=== PATIENT | female | born 1960 | race American Indian/Alaskan Native ===

== ENCOUNTER 2017-06-17 00:45 | Inpatient (IN) | payer OTHER ==
[2017-06-17] MEDS ORDERED: ASPIRIN PO ONE (01:11)
[2017-06-17] MEDS ORDERED: CATAPRES ONE (01:17)
[2017-06-17] MEDS ORDERED: CATAPRES PO ONE (01:20)
[2017-06-17 02:10] LABS: Hematocrit 41.3 % (30.3-42.9); Hemoglobin 13.5 gm/dl (10.1-14.3); Mean Corpuscular HGB Conc 33 % (30-34); Mean Corpuscular Hemoglobin 27 pg (28-32); Mean Corpuscular Volume 83 fl (79-97); Platelet Count 288 K/mm3 (140-440); Red Cell Distribution Width 15.4 % (13.2-15.2)
[2017-06-17 02:27] LABS: BUN/Creatinine Ratio 16; Blood Urea Nitrogen 14 mg/dL (7-17); Calcium 9.2 mg/dL (8.4-10.2); Hemolysis Index 15
[2017-06-17 06:15] LABS: Anisocytosis 1+; Band Neutrophils # (Manual) 0.2 K/mm3; Basophils % (Manual) 0 % (0.0-1.8); Hypochromasia 1+; Total Cells Counted 100
[2017-06-17 06:16] LABS: Ovalocytes Few
[2017-06-17] MEDS ORDERED: HCTZ PO ONE (09:13)
[2017-06-17] MEDS ORDERED: ZESTRIL PO ONE (09:13)
[2017-06-17] MEDS ORDERED: NITROSTAT SL ONE ×2 (10:06→10:09)
[2017-06-17] MEDS ORDERED: TYLENOL PO ONE (10:06)
--- NOTE | 2017-06-17 10:10 | Emergency Department Report ---
ED Chest Pain HPI - General Chief Complaint: Chest Pain Stated Complaint: CP Time Seen by Provider: 06/17/17 09:44 Source: patient Mode of arrival: Ambulatory Limitations: No Limitations - History of Present Illness Initial Comments: Patient is 57 years old female history of hypertension and obesity. Presented with left-sided chest pain started last night radiates to her left arm, patient prescribed her pain as pressure, intermittent. Patient denied any shortness of breath, no nausea no vomiting. MD Complaint: chest pain -: Last night Pain Location: left chest Pain Radiation: LUE Severity scale (0 -10): 5 Quality: pressure Consistency: intermittent Improves With: nothing Worsens With: exertion Treatments Prior to Arrival: none - Related Data Home Medications Medication Instructions Recorded Confirmed Last Taken Lisinopril/Hydrochlorothiazide 1 tab PO QDAY 06/17/17 06/17/17 Unknown [Zestoretic 20-25 mg] Allergies Allergy/AdvReac Type Severity Reaction Status Date / Time No Known Allergies Allergy Verified 06/17/17 01:31 Heart Score - HEART Score History: Moderately suspicious EKG: Non-specific Age: 45-65 Risk factors: 1-2 risk factors Troponin: < normal limit HEART Score: 4 - Critical Actions Critical Actions: 4-6 pts:12-16.6% risk of adverse cardiac event. Should be admitted ED Review of Systems ROS: Stated complaint: CP Other details as noted in HPI Comment: All other systems reviewed and negative Constitutional: denies: chills, fever Respiratory: denies: cough, orthopnea, shortness of breath, SOB with exertion Cardiovascular: chest pain. denies: palpitations, dyspnea on exertion Gastrointestinal: denies: abdominal pain, nausea, vomiting, diarrhea, constipation, hematemesis Genitourinary: denies: urgency, frequency Neurological: denies: headache, weakness, numbness, paresthesias ED Past Medical Hx - Past Medical History Hx Hypertension: Yes - Surgical History Additional Surgical History: Carpal Tunnel Bilateral hands, Hysterectomy - Social History Smoking Status: Never Smoker Substance Use Type: None - Medications Home Medications: Home Medications Medication Instructions Recorded Confirmed Last Taken Type Lisinopril/Hydrochlorothiazide 1 tab PO QDAY 06/17/17 06/17/17 Unknown History [Zestoretic 20-25 mg] ED Physical Exam - General Limitations: No Limitations General appearance: alert, in no apparent distress - Head Head exam: Present: atraumatic, normocephalic - Eye Eye exam: Present: normal appearance, PERRL - ENT ENT exam: Present: normal exam, normal orophraynx - Respiratory Respiratory exam: Present: normal lung sounds bilaterally. Absent: respiratory distress, wheezes, rales, rhonchi, chest wall tenderness, decreased breath sounds, prolonged expiratory - Cardiovascular Cardiovascular Exam: Present: regular rate, normal rhythm, normal heart sounds - GI/Abdominal GI/Abdominal exam: Present: soft, normal bowel sounds. Absent: distended, tenderness, guarding, rebound, rigid, organomegaly, mass, bruit, pulsatile mass , hernia - Extremities Exam Extremities exam: Present: normal inspection, full ROM, normal capillary refill - Back Exam Back exam: Present: normal inspection, full ROM. Absent: tenderness, CVA tenderness (R), CVA tenderness (L), muscle spasm, paraspinal tenderness, vertebral tenderness - Neurological Exam Neurological exam: Present: alert, oriented X3, CN II-XII intact, normal gait - Skin Skin exam: Present: warm, intact, normal color. Absent: cyanosis, diaphoretic, erythema ED Course Vital Signs 06/17/17 06/17/17 06/17/17 00:59 01:21 08:37 Temperature 98.8 F Pulse Rate 98 H 101 H 60 Respiratory 20 18 Rate Blood Pressure 222/122 222/122 Blood Pressure [Left] O2 Sat by Pulse 97 99 Oximetry 06/17/17 06/17/17 06/17/17 08:44 08:46 08:47 Temperature 97.8 F Pulse Rate 73 67 Respiratory 18 14 18 Rate Blood Pressure 190/102 Blood Pressure 190/102 [Left] O2 Sat by Pulse 98 96 98 Oximetry 06/17/17 06/17/17 06/17/17 09:00 09:10 09:18 Temperature Pulse Rate 65 73 73 Respiratory 14 18 Rate Blood Pressure 161/95 161/95 Blood Pressure 161/95 [Left] O2 Sat by Pulse 97 97 Oximetry 06/17/17 10:11 Temperature Pulse Rate 72 Respiratory Rate Blood Pressure 178/101 Blood Pressure [Left] O2 Sat by Pulse Oximetry ED Medical Decision Making - Lab Data Result diagrams: 06/17/17 01:23 06/17/17 01:23 - EKG Data -: EKG Interpreted by De EKG shows normal: sinus rhythm Rate: normal - EKG Data Interpretation: no acute changes - Medical Decision Making Discussed with Dr. Ross., I presented the patient to him, he agreed to admit the patient to his service. Critical care attestation.: If time is entered above; I have spent that time in minutes in the direct care of this critically ill patient, excluding procedure time. ED Disposition Clinical Impression: Chest pain, Malignant hypertension Disposition: OP ADMIT IP TO THIS HOSP Is pt being admited?: Yes Condition: Stable Instructions: Chest Pain (ED), Hypertension (ED) Referrals: PRIMARY CARE, [Primary Care Provider] - 3-5 Days
--- NOTE | 2017-06-17 10:46 | XRay Report ---
Single view chest: History: Chest pain. Findings: Borderline cardiomegaly. Trachea is midline. No consolidation, pneumothorax or pleural effusion. Impression: No definite acute cardiopulmonary findings.
--- NOTE | 2017-06-17 11:18 | History and Physical Report ---
History of Present Illness Date of examination: 06/17/17 Date of admission: 06/17/17 Chief complaint: Chest pain 1 day History of present illness: - History of Present Illness Initial Comments: Patient is 57 years old AAF with history of hypertension and obesity presented with left-sided chest pain started last night radiates to her left arm , patient her pain as pressure, intermittent. Patient denied any shortness of breath, no nausea no vomiting. ED Review of Systems ROS: Stated complaint: CP Other details as noted in HPI Comment: All other systems reviewed and negative Constitutional: denies: chills, fever Respiratory: denies: cough, orthopnea, shortness of breath, SOB with exertion Cardiovascular: chest pain. denies: palpitations, dyspnea on exertion Gastrointestinal: denies: abdominal pain, nausea, vomiting, diarrhea, constipation, hematemesis Genitourinary: denies: urgency, frequency Neurological: denies: headache, weakness, numbness, paresthesias ED Past Medical Hx - Past Medical History Hx Hypertension: Yes - Surgical History Additional Surgical History: Carpal Tunnel Bilateral hands, Hysterectomy - Social History Smoking Status: Never Smoker Substance Use Type: None - Medications Home Medications: Home Medications Medication Instructions Recorded Confirmed Last Taken Type Lisinopril/Hydrochlorothiazide 1 tab PO QDAY 06/17/17 06/17/17 Unknown History [Zestoretic 20-25 mg] Past History Past Medical History: hypertension Medications and Allergies Allergies Allergy/AdvReac Type Severity Reaction Status Date / Time No Known Allergies Allergy Verified 06/17/17 01:31 Home Medications Medication Instructions Recorded Confirmed Last Taken Type Lisinopril/Hydrochlorothiazide 1 tab PO QDAY 06/17/17 06/17/17 Unknown History [Zestoretic 20-25 mg] Exam - Constitutional Vitals: Temp Pulse Resp BP Pulse Ox 97.8 F 64 13 148/93 97 06/17/17 08:44 06/17/17 11:00 06/17/17 11:00 06/17/17 11:00 06/17/17 11:00 General appearance: Present: no acute distress, well-nourished - EENT Eyes: Present: PERRL ENT: hearing intact, clear oral mucosa - Neck Neck: Present: supple, normal ROM - Respiratory Respiratory effort: normal Respiratory: bilateral: CTA - Cardiovascular Heart rate: 80 Rhythm: regular Heart Sounds: Present: S1 & S2. Absent: rub, click - Extremities Extremities: no ischemia, pulses intact, pulses symmetrical, No edema Peripheral Pulses: within normal limits - Abdominal General gastrointestinal: Present: soft, non-tender, non-distended, normal bowel sounds Female genitourinary: Present: normal - Rectal Rectal Exam: deferred - Integumentary Integumentary: Present: clear, warm, dry - Musculoskeletal Musculoskeletal: gait normal, strength equal bilaterally - Psychiatric Psychiatric: appropriate mood/affect, intact judgment & insight - Neurologic Neurologic: CNII-XII intact, moves all extremities - Allied Health Allied health notes reviewed: nursing, case management Results - Labs CBC & Chem 7: 06/18/17 06:14 06/18/17 06:14 Labs: Laboratory Last Values WBC 10.6 K/mm3 (4.5-11.0) 06/17/17 01:23 RBC 5.00 M/mm3 (3.65-5.03) 06/17/17 01:23 Hgb 13.5 gm/dl (10.1-14.3) 06/17/17 01:23 Hct 41.3 % (30.3-42.9) 06/17/17 01:23 MCV 83 fl (79-97) 06/17/17 01:23 MCH 27 pg (28-32) L 06/17/17 01:23 MCHC 33 % (30-34) 06/17/17 01:23 RDW 15.4 % (13.2-15.2) H 06/17/17 01:23 Plt Count 288 K/mm3 (140-440) 06/17/17 01:23 Lymph # [employer] 06/17/17 01:23 Add Manual Diff Complete 06/17/17 01:23 Total Counted 100 06/17/17 01:23 Seg Neuts % (Manual) 56.0 % (40.0-70.0) 06/17/17 01:23 Band Neutrophils % 2.0 % 06/17/17 01:23 Lymphocytes % (Manual) 28.0 % (13.4-35.0) 06/17/17 01:23 Reactive Lymphs % (Man) 0 % 06/17/17 01:23 Monocytes % (Manual) 9.0 % (0.0-7.3) H 06/17/17 01:23 Eosinophils % (Manual) 5.0 % (0.0-4.3) H 06/17/17 01:23 Basophils % (Manual) 0 % (0.0-1.8) 06/17/17 01:23 Metamyelocytes % 0 % 06/17/17 01:23 Myelocytes % 0 % 06/17/17 01:23 Promyelocytes % 0 % 06/17/17 01:23 Blast Cells % 0 % 06/17/17 01:23 Nucleated RBC % Not Reportable 06/17/17 01:23 Seg Neutrophils # Man 5.9 K/mm3 (1.8-7.7) 06/17/17 01:23 Band Neutrophils # 0.2 K/mm3 06/17/17 01:23 Lymphocytes # (Manual) 3.0 K/mm3 (1.2-5.4) 06/17/17 01:23 Abs React Lymphs (Man) 0.0 K/mm3 06/17/17 01:23 Monocytes # (Manual) 1.0 K/mm3 (0.0-0.8) H 06/17/17 01:23 Eosinophils # (Manual) 0.5 K/mm3 (0.0-0.4) H 06/17/17 01:23 Basophils # (Manual) 0.0 K/mm3 (0.0-0.1) 06/17/17 01:23 Metamyelocytes # 0.0 K/mm3 06/17/17 01:23 Myelocytes # 0.0 K/mm3 06/17/17 01:23 Promyelocytes # 0.0 K/mm3 06/17/17 01:23 Blast Cells # 0.0 K/mm3 06/17/17 01:23 WBC Morphology Not Reportable 06/17/17 01:23 Hypersegmented Neuts Not Reportable 06/17/17 01:23 Hyposegmented Neuts Not Reportable 06/17/17 01:23 Hypogranular Neuts Not Reportable 06/17/17 01:23 Smudge Cells Not Reportable 06/17/17 01:23 Toxic Granulation Not Reportable 06/17/17 01:23 Toxic Vacuolation Not Reportable 06/17/17 01:23 Dohle Bodies Not Reportable 06/17/17 01:23 Pelger-Huet Anomaly Not Reportable 06/17/17 01:23 Karen Rods Not Reportable 06/17/17 01:23 Platelet Estimate Appears normal 06/17/17 01:23 Clumped Platelets Not Reportable 06/17/17 01:23 Plt Clumps, EDTA Not Reportable 06/17/17 01:23 Large Platelets Not Reportable 06/17/17 01:23 Giant Platelets Not Reportable 06/17/17 01:23 Platelet Satelliting Not Reportable 06/17/17 01:23 Plt Morphology Comment Not Reportable 06/17/17 01:23 RBC Morphology Not Reportable 06/17/17 01:23 Dimorphic RBCs Not Reportable 06/17/17 01:23 Polychromasia Not Reportable 06/17/17 01:23 Hypochromasia 1+ 06/17/17 01:23 Poikilocytosis Not Reportable 06/17/17 01:23 Anisocytosis 1+ 06/17/17 01:23 Microcytosis Not Reportable 06/17/17 01:23 Macrocytosis Not Reportable 06/17/17 01:23 Spherocytes Not Reportable 06/17/17 01:23 Pappenheimer Bodies Not Reportable 06/17/17 01:23 Sickle Cells Not Reportable 06/17/17 01:23 Target Cells Not Reportable 06/17/17 01:23 Tear Drop Cells Not Reportable 06/17/17 01:23 Ovalocytes Few 06/17/17 01:23 Helmet Cells Not Reportable 06/17/17 01:23 [place] Bodies Not Reportable 06/17/17 01:23 [place] Rings Not Reportable 06/17/17 01:23 Kerrie Cells Not Reportable 06/17/17 01:23 Bite Cells Not Reportable 06/17/17 01:23 Crenated Cell Not Reportable 06/17/17 01:23 Elliptocytes Not Reportable 06/17/17 01:23 Acanthocytes (Spur) Not Reportable 06/17/17 01:23 Rouleaux Not Reportable 06/17/17 01:23 Hemoglobin C Crystals Not Reportable 06/17/17 01:23 Schistocytes Not Reportable 06/17/17 01:23 Malaria parasites Not Reportable 06/17/17 01:23 Nikolas Bodies Not Reportable 06/17/17 01:23 Hem Pathologist Commnt No 06/17/17 01:23 Sodium 141 mmol/L (137-145) 06/17/17 01:23 Potassium 4.1 mmol/L (3.6-5.0) 06/17/17 01:23 Chloride 100.3 mmol/L (98-107) 06/17/17 01:23 Carbon Dioxide 27 mmol/L (22-30) 06/17/17 01:23 Anion Gap 18 mmol/L 06/17/17 01:23 BUN 14 mg/dL (7-17) 06/17/17 01:23 Creatinine 0.9 mg/dL (0.7-1.2) 06/17/17 01:23 Estimated GFR > 60 ml/min 06/17/17 01:23 BUN/Creatinine Ratio 16 % 06/17/17 01:23 Glucose 86 mg/dL (65-100) 06/17/17 01:23 Calcium 9.2 mg/dL (8.4-10.2) 06/17/17 01:23 Troponin T < 0.010 ng/mL (0.00-0.029) 06/17/17 07:30 Short CBC 06/18/17 Range/Units 06:14 WBC 7.5 (4.5-11.0) K/mm3 Hgb 13.0 (10.1-14.3) gm/dl Hct 39.1 (30.3-42.9) % Plt Count 275 (140-440) K/mm3 BMP 06/18/17 06:14 Sodium 139 Potassium 4.5 Chloride 99.1 Carbon Dioxide 27 BUN 12 Creatinine 0.8 Glucose 91 Calcium 9.3 Cardiac Enzymes 06/17/17 Range/Units 17:20 Troponin T < 0.010 (0.00-0.029) ng/mL Liver Function 06/18/17 Range/Units 06:14 Total Bilirubin 0.50 (0.1-1.2) mg/dL AST 29 (5-40) units/L ALT 29 (7-56) units/L Alkaline Phosphatase 71 (35-129) units/L Albumin 3.8 L (3.9-5) g/dL - Imaging and Cardiology EKG: report reviewed (sinus tach 112/min) Assessment and Plan Advance Directives: Yes (full code) VTE prophylaxis?: Chemical Plan of care discussed with patient/family: Yes - Patient Problems (1) Chest pain Current Visit: Yes Status: Acute Qualifiers: Chest pain type: chest pain on breathing Qualified Code(s): R07.1 - Chest pain on breathing; R07.81 - Pleurodynia Plan to address problem: Chest pain w/u. Serial cardiac enzymes and Lexiscan in AM Diff Dx Costochondritis and GERD (2) HTN (hypertension) Current Visit: Yes Status: Chronic Qualifiers: Hypertension type: essential hypertension Qualified Code(s): I10 - Essential (primary) hypertension Plan to address problem: Cont Antihypertensives (3) DVT prophylaxis Current Visit: Yes Status: Acute Plan to address problem: Lovenox
[2017-06-17] MEDS ORDERED: DULCOLAX PR PRN (11:24)
[2017-06-17] MEDS ORDERED: MILK OF MAGNESIA PO PRN (11:24)
[2017-06-17] MEDS ORDERED: TYLENOL PO PRN (11:24)
[2017-06-17] MEDS ORDERED: ZOFRAN IV PRN (11:24)
[2017-06-17] MEDS ORDERED: PERCOCET 5/325 PO PRN (11:24)
[2017-06-17] MEDS ORDERED: SODIUM CHLORIDE FLUSH SYRINGE 10 ML IV PRN (11:28)
[2017-06-17] MEDS ORDERED: NON-FORMULARY (Lisinopril/Hydrochlorothiazide [Zestoretic 20-25 Mg] 1 TAB) PO SCH (11:30)
[2017-06-17 12:03] LABS: Basophils # (Auto) 0.1 K/mm3 (0.0-0.1); Basophils % (Auto) 0.5 % (0.0-1.8); Eosinophils # (Auto) 0.4 K/mm3 (0.0-0.4); Eosinophils % (Auto) 3.7 % (0.0-4.3); Hematocrit 38.6 % (30.3-42.9); Hemoglobin 12.3 gm/dl (10.1-14.3); Lymphocytes # (Auto) 4.3 K/mm3 (1.2-5.4); Lymphocytes % (Auto) 43.6 % (13.4-35.0); Mean Corpuscular HGB Conc 32 % (30-34); Mean Corpuscular Hemoglobin 26 pg (28-32); Mean Corpuscular Volume 82 fl (79-97); Monocytes # (Auto) 0.6 K/mm3 (0.0-0.8); Monocytes % (Auto) 6.5 % (0.0-7.3); Platelet Count 296 K/mm3 (140-440); Red Blood Count 4.69 M/mm3 (3.65-5.03)
[2017-06-17 12:21] LABS: BUN/Creatinine Ratio 16; Blood Urea Nitrogen 13 mg/dL (7-17); Calcium 9.3 mg/dL (8.4-10.2); Hemolysis Index 2
[2017-06-17] MEDS: LOVENOX SUB-Q SCH (22:55)
[2017-06-18 07:35] LABS: Basophils % (Auto) 0.5 % (0.0-1.8); Eosinophils # (Auto) 0.5 K/mm3 (0.0-0.4); Eosinophils % (Auto) 6.5 % (0.0-4.3); Hematocrit 39.1 % (30.3-42.9); Lymphocytes # (Auto) 3.3 K/mm3 (1.2-5.4); Lymphocytes % (Auto) 44.6 % (13.4-35.0); Mean Corpuscular HGB Conc 33 % (30-34); Mean Corpuscular Hemoglobin 28 pg (28-32); Mean Corpuscular Volume 83 fl (79-97); Monocytes # (Auto) 0.5 K/mm3 (0.0-0.8); Platelet Count 275 K/mm3 (140-440); Red Blood Count 4.73 M/mm3 (3.65-5.03); Red Cell Distribution Width 15.7 % (13.2-15.2)
[2017-06-18 07:49] LABS: Alanine Aminotransferase 29 units/L (7-56); Albumin 3.8 g/dL (3.9-5); BUN/Creatinine Ratio 15; Blood Urea Nitrogen 12 mg/dL (7-17); Calcium 9.3 mg/dL (8.4-10.2); Hemolysis Index 7
[2017-06-18] MEDS ORDERED: LEXISCAN IV ONE ×2 (09:43)
[2017-06-18] MEDS ORDERED: CATAPRES PO NR (09:51)
[2017-06-18] MEDS ORDERED: CATAPRES ONE (09:52)
[2017-06-18] MEDS ORDERED: PNEUMOVAX 23 IM ONE (12:00)
[2017-06-18] MEDS: HCTZ PO SCH (14:00)
[2017-06-18] MEDS: ZESTRIL PO SCH ×2 (14:14→14:21)
[2017-06-18] MEDS ORDERED: SODIUM CHLORIDE FLUSH SYRINGE 10 ML IV PRN (15:40)
--- NOTE | 2017-06-18 15:46 | Progress Note ---
Assessment and Plan - Patient Problems (1) Chest pain Current Visit: Yes Status: Acute Qualifiers: Chest pain type: chest pain on breathing Qualified Code(s): R07.1 - Chest pain on breathing; R07.81 - Pleurodynia Plan to address problem: Chest pain w/u. Serial cardiac enzymes and Lexiscan in AM Diff Dx Costochondritis and GERD (2) HTN (hypertension) Current Visit: Yes Status: Chronic Qualifiers: Hypertension type: essential hypertension Qualified Code(s): I10 - Essential (primary) hypertension Plan to address problem: Cont Antihypertensives (3) DVT prophylaxis Current Visit: Yes Status: Acute Plan to address problem: Lovenox Subjective Date of service: 06/18/17 Principal diagnosis: ACS Interval history: Doing well Objective - Constitutional Vitals: Vital Signs - 12hr 06/18/17 06/18/17 06/18/17 04:55 05:00 05:01 Temperature 98.4 F 98.4 F Pulse Rate 65 78 77 Respiratory 20 20 Rate Blood Pressure 144/86 126/69 O2 Sat by Pulse 92 95 Oximetry 06/18/17 06/18/17 06/18/17 08:12 09:25 09:46 Temperature 98.5 F Pulse Rate 66 71 90 Respiratory 18 Rate Blood Pressure 172/91 198/98 182/100 O2 Sat by Pulse 91 Oximetry 06/18/17 06/18/17 06/18/17 09:47 09:48 09:49 Temperature Pulse Rate 87 87 83 Respiratory Rate Blood Pressure 199/101 209/97 200/90 O2 Sat by Pulse Oximetry 06/18/17 06/18/17 06/18/17 09:50 09:51 09:52 Temperature Pulse Rate 85 81 79 Respiratory Rate Blood Pressure 176/95 191/99 192/92 O2 Sat by Pulse Oximetry 06/18/17 06/18/17 06/18/17 09:53 09:54 10:01 Temperature Pulse Rate 79 79 119 H Respiratory Rate Blood Pressure 196/97 175/95 188/95 O2 Sat by Pulse Oximetry General appearance: Present: no acute distress, well-nourished - EENT Eyes: PERRL, EOM intact ENT: hearing intact, clear oral mucosa Ears: bilateral: normal - Neck Neck: supple, normal ROM - Respiratory Respiratory effort: normal Respiratory: bilateral: CTA, rhonchi - Breasts Breasts: normal - Cardiovascular Rhythm: regular Heart Sounds: Present: S1 & S2. Absent: gallop, rub Extremities: no ischemia, pulses intact, No edema, normal color, Full ROM - Gastrointestinal General gastrointestinal: Present: soft, non-tender, non-distended, normal bowel sounds Rectal Exam: deferred - Genitourinary Female genitourinary: normal - Integumentary Integumentary: clear, warm, dry - Musculoskeletal Musculoskeletal: 1, strength equal bilaterally - Neurologic Neurologic: moves all extremities - Psychiatric Psychiatric: memory intact, appropriate mood/affect, intact judgment & insight - Allied health notes Allied health notes reviewed: nursing, case management - Labs CBC & Chem 7: 06/18/17 06:14 06/18/17 06:14 Labs: Abnormal lab results 06/18/17 06/18/17 Range/Units 06:14 06:14 RDW 15.7 H (13.2-15.2) % Lymph % (Auto) 44.6 H (13.4-35.0) % Eos % (Auto) 6.5 H (0.0-4.3) % Eos # 0.5 H (0.0-0.4) K/mm3 Albumin 3.8 L (3.9-5) g/dL
[2017-06-18 16:06] LABS: Hematocrit 43.2 % (30.3-42.9); Hemoglobin 13.6 gm/dl (10.1-14.3); Mean Corpuscular HGB Conc 31 % (30-34); Mean Corpuscular Hemoglobin 26 pg (28-32); Mean Corpuscular Volume 83 fl (79-97); Platelet Count 299 K/mm3 (140-440); Red Blood Count 5.21 M/mm3 (3.65-5.03); Red Cell Distribution Width 15.8 % (13.2-15.2)
[2017-06-18 16:44] LABS: BUN/Creatinine Ratio 16; Blood Urea Nitrogen 13 mg/dL (7-17); Calcium 9.6 mg/dL (8.4-10.2); Hemolysis Index 69
[2017-06-18 17:29] LABS: Band Neutrophils # (Manual) 0.1 K/mm3; Basophils % (Manual) 0 % (0.0-1.8); RBC Morphology Normal; Total Cells Counted 100
[2017-06-18] MEDS: LOVENOX SUB-Q SCH (22:20)
[2017-06-19] MEDS: HCTZ PO SCH ×2 (07:18→09:41)
[2017-06-19] MEDS: ZESTRIL PO SCH ×2 (07:19→09:41)
--- NOTE | 2017-06-19 07:26 | Treadmill Report ---
THALLIUM STRESS TEST REPORT LEFT VENTRICLE: Left ventricular chamber size is within normal spread. Perfusion study demonstrates homogeneous uptake of the tracer in all segments, no significant perfusion defects identified. Gated analysis demonstrates normal left ventricular systolic function, ejection fraction 64%. CONCLUSION: Normal myocardial perfusion study. JOB# [id number] CA/NTS
--- NOTE | 2017-06-19 15:37 | Discharge Summary ---
Providers - Providers Date of Admission: 06/17/17 11:24 Date of discharge: 06/19/17 Attending physician: POONAM MCKINNON 06/18/17 Consult to Cardiac Rehabilitation [CONS] Routine Reason For Exam: Phase I Primary care physician: SAIMA GUZMÁN Hospitalization Reason for admission: cp Condition: Stable Hospital course: Patient is 57 years old AAF with history of hypertension and obesity presented with left-sided chest pain started the night before admission and reportedly radiated to her left arm. Her pain was described as a pressure that was intermittent. Patient denied any shortness of breath, no nausea no vomiting. Patient currently denies any chest pain today. Patient underwent a stress thallium, which was found to be negative. Chest x-ray was also found to be negative. Troponins were negative 3 sets. Etiology of chest pain is likely GERD. Dedicated discharge time 33 minutes. Disposition: TO HOME OR SELFCARE Time spent for discharge: 33 - Discharge Diagnoses (1) Chest pain Status: Acute Qualifiers: Chest pain type: chest pain on breathing Qualified Code(s): R07.1 - Chest pain on breathing; R07.81 - Pleurodynia (2) HTN (hypertension) Status: Chronic Qualifiers: Hypertension type: essential hypertension Qualified Code(s): I10 - Essential (primary) hypertension Core Measure Documentation - Palliative Care Palliative Care/ Comfort Measures: Not Applicable - Core Measures Any of the following diagnoses?: none Exam - Constitutional Vitals: Temp Pulse Resp BP Pulse Ox 98.9 F 79 18 156/83 94 06/19/17 12:30 06/19/17 12:30 06/19/17 12:30 06/19/17 12:30 06/19/17 12:30 General appearance: Present: no acute distress, well-nourished - EENT Eyes: Present: PERRL ENT: hearing intact, clear oral mucosa - Neck Neck: Present: supple, normal ROM - Respiratory Respiratory effort: normal Respiratory: bilateral: CTA - Cardiovascular Heart Sounds: Present: S1 & S2. Absent: rub, click - Extremities Extremities: pulses symmetrical, No edema Peripheral Pulses: within normal limits - Abdominal General gastrointestinal: Present: soft, non-tender, non-distended, normal bowel sounds Female genitourinary: Present: normal - Integumentary Integumentary: Present: clear, warm, dry - Musculoskeletal Musculoskeletal: gait normal, strength equal bilaterally - Psychiatric Psychiatric: appropriate mood/affect, intact judgment & insight - Neurologic Neurologic: CNII-XII intact, moves all extremities Plan Activity: no restrictions Weight Bearing Status: Full Weight Bearing Diet: regular Follow up with: PRIMARY CARE, [Referring] - 3-5 Days Prescriptions: AtorvaSTATin [Lipitor] 10 mg PO QHS #30 tablet Lisinopril/Hydrochlorothiazide [Zestoretic 20-25 mg] 1 tab PO QDAY #30 tablet
[2017-06-19 17:16] VITALS: BP 171/82
== END 2017-06-19 18:50 | disposition home or self-care (01) | DRG 313 ==
LOC: ED 00:45 → 4A 11:24
PROVIDERS: ADMIT Internal Medicine; ATTEND Hospitalist
PROC: 3E0234Z Introduction of Serum, Toxoid and Vaccine into Muscle, Percutaneous Approach (ICD-10-PCS; principal; 2017-06-18)
DX: R07.9 Chest pain, unspecified (principal); E66.9 Obesity, unspecified; I10 Essential (primary) hypertension; Z79.899 Other long term (current) drug therapy; Z68.41 Body mass index [BMI] 40.0-44.9, adult; Z90.710 Acquired absence of both cervix and uterus; Z23 Encounter for immunization
CPT/HCPCS: 36415; 71045; 78452; 80048; 80053; 83036; 84484; 85007; 85025; 90732; 93005; 93010; 93017; A9270-GY; A9502; J1650; J2785

== ENCOUNTER 2018-01-07 17:17 | Emergency (ER) | payer SELFPAY ==
[2018-01-07] MEDS ORDERED: CATAPRES ONE (17:33)
[2018-01-07] MEDS ORDERED: CATAPRES PO ONE (17:39)
[2018-01-07] MEDS ORDERED: CARDENE 50 MG in NACL 0.9% 250ML 230 ML IV SCH (19:00)
--- NOTE | 2018-01-07 19:13 | Emergency Department Report ---
HPI - General Chief Complaint: Headache Time Seen by Provider: 01/07/18 19:00 - [facility] HPI: Room 2 The patient is a 57-year-old female presenting with a chief complaint of headache. The patient states for the past 2 days she's had a constant left frontal headache. Patient denies preceding trauma. Patient denies fever nausea or vomiting. Patient gives her pain a score of 10/10. Patient denies any other forms of pain. Location: [See above] Duration: Constant 2 days Quality: Headache Severity: 10/10 Modifying factors: [see above] Context: [see above] Mode of transportation: [not driving] ED Past Medical Hx - Past Medical History Hx Hypertension: Yes - Surgical History Additional Surgical History: Carpal Tunnel Bilateral hands, Hysterectomy - Family History Family history: no significant - Social History Smoking Status: Unknown if ever smoked Substance Use Type: None - Medications Home Medications: Home Medications Medication Instructions Recorded Confirmed Last Taken Type No Known Home Medications [No 01/07/18 01/07/18 Unknown History Reported Home Medications] ED Review of Systems ROS: Stated complaint: HEAD PAIN Other details as noted in HPI Constitutional: denies: fever Eyes: denies: eye pain ENT: denies: throat pain Respiratory: no symptoms reported Cardiovascular: denies: chest pain Endocrine: denies: unexplained weight loss Gastrointestinal: denies: abdominal pain, nausea, vomiting Genitourinary: denies: dysuria Musculoskeletal: denies: back pain Skin: denies: change in color Neurological: headache Physical Exam - Physical Exam Vital Signs: Vital Signs 01/07/18 01/07/18 01/07/18 17:25 17:40 18:56 Temperature 99 F Pulse Rate 97 H 97 H 73 Respiratory 20 18 Rate Blood Pressure 269/151 269/151 Blood Pressure [Left] O2 Sat by Pulse 98 99 Oximetry 01/07/18 19:06 Temperature Pulse Rate Respiratory Rate Blood Pressure Blood Pressure 210/130 [Left] O2 Sat by Pulse Oximetry Physical Exam: GENERAL: The patient is well-developed well-nourished female sitting on stretcher appearing to be in mild discomfort. [] HEENT: Normocephalic. Atraumatic. Extraocular motions are intact. Patient has moist mucous membranes. NECK: Supple. Trachea midline CHEST/LUNGS: Clear to auscultation. There is no respiratory distress noted. HEART/CARDIOVASCULAR: Regular. There is no tachycardia. There is no gallop rub or murmur. ABDOMEN: Abdomen is soft, nontender. Patient has normal bowel sounds. There is no abdominal distention. SKIN: There is no rash. There is no edema. There is no diaphoresis. NEURO: The patient is awake, alert, and oriented. The patient is cooperative. The patient has no focal neurologic deficits. The patient has normal speech. Cranial nerves II through XII grossly intact, no drift. Normal sensation throughout. [place] 5/5 bilaterally MUSCULOSKELETAL: There is no evidence of acute injury. ED Course Vital Signs 01/07/18 01/07/18 01/07/18 17:25 17:40 18:56 Temperature 99 F Pulse Rate 97 H 97 H 73 Respiratory 20 18 Rate Blood Pressure 269/151 269/151 Blood Pressure [Left] O2 Sat by Pulse 98 99 Oximetry 01/07/18 19:06 Temperature Pulse Rate Respiratory Rate Blood Pressure Blood Pressure 210/130 [Left] O2 Sat by Pulse Oximetry - Consultations Consultation #1: 01/07/18 19:09 [place] transfer line called 01/07/18 19:30 Case discussed with [place] neurosurgeon Dr. Upton-will accept patient in transfer. Okay to administer narcotic pain medication. Recommends administering Keppra 01/07/18 19:38 Case discussed with [place] [facility]- states they have an ICU bed available and will accept the patient. States accepting physician will be Dr. Mychal Blake ED Medical Decision Making - Lab Data Result diagrams: 01/07/18 19:30 01/07/18 18:08 Laboratory Tests 01/07/18 01/07/18 01/07/18 18:08 19:30 19:30 WBC 9.6 RBC 4.92 Hgb 13.1 Hct 40.7 MCV 83 MCH 27 L MCHC 32 RDW 15.5 H Plt Count 238 PT 14.4 INR 1.06 APTT 27.5 Sodium 138 Potassium 4.7 Chloride 100.7 Carbon Dioxide 21 L Anion Gap 21 BUN 14 Creatinine 0.9 Estimated GFR > 60 BUN/Creatinine Ratio 16 Glucose 92 Calcium 9.5 - Radiology Data Radiology results: image reviewed (CT head) interpreted by me: CT head (read by radiologist)-left occipital parietal hemorrhage measuring 2.56 cm. - Differential Diagnosis hypertensive emergency Critical care attestation.: If time is entered above; I have spent that time in minutes in the direct care of this critically ill patient, excluding procedure time. ED Disposition Clinical Impression: Hypertensive emergency, Intracranial hemorrhage, Headache Disposition: [id number]/[place]-[id number] ANOTHER TYPE HLTHCARE Is pt being admited?: No Does the pt Need Aspirin: No Condition: Serious Instructions: Hypertension (ED) Time of Disposition: 19:31 (awaiting transport)
[2018-01-07 19:18] LABS: BUN/Creatinine Ratio 16; Blood Urea Nitrogen 14 mg/dL (7-17); Calcium 9.5 mg/dL (8.4-10.2); Hemolysis Index 212
[2018-01-07] MEDS ORDERED: SUBLIMAZE IV ONE (19:27)
[2018-01-07] MEDS ORDERED: KEPPRA 1,000 MG/NS 0.75% 100ML 1,000 MG/100 ML BAG IV ONE (19:27)
[2018-01-07] MEDS ORDERED: REGLAN IV ONE (19:28)
--- NOTE | 2018-01-07 19:28 | Cat Scan Report ---
FINAL REPORT PROCEDURE: CT HEAD/BRAIN WO CON TECHNIQUE: Computerized tomography of the head was performed without contrast material. HISTORY: maligant HTN with severe headache COMPARISON: No prior studies are available for comparison. FINDINGS: There is acute parenchymal hemorrhage in the left parietotemporal lobe, measuring up to 2.5 centimeters. There is surrounding parenchymal edema. No significant mass effect. No evidence of hydrocephalus. Basal cisterns are preserved. Calvarium is intact. Paranasal sinuses and mastoids are aerated. IMPRESSION: Acute parenchymal hemorrhagein the left parietotemporal region, without significant mass effect. Although this could be related to [place] hemorrhage, cannot exclude underlying vascular malformation or parenchymal mass with hemorrhage. Recommend further evaluation as clinically indicated. Findings were discussed with by telephone at 6:12 p.m. central standard time on 01/07/2018
[2018-01-07 20:00] LABS: Hematocrit 40.7 % (30.3-42.9); Hemoglobin 13.1 gm/dl (10.1-14.3); Mean Corpuscular HGB Conc 32 % (30-34); Mean Corpuscular Hemoglobin 27 pg (28-32); Mean Corpuscular Volume 83 fl (79-97); Platelet Count 238 K/mm3 (140-440); Red Blood Count 4.92 M/mm3 (3.65-5.03); Red Cell Distribution Width 15.5 % (13.2-15.2)
[2018-01-07 20:06] LABS: INR 1.06 (0.87-1.13)
[2018-01-07 20:07] LABS: Partial Thromboplastin Time 27.5 Sec. (24.2-36.6)
[2018-01-07 20:45] VITALS: BP 137/71
== END 2018-01-07 20:55 | disposition other institution (70) ==
LOC: ED 17:17
DX: I62.9 Nontraumatic intracranial hemorrhage, unspecified (principal); I16.0 Hypertensive urgency; I10 Essential (primary) hypertension; Z90.710 Acquired absence of both cervix and uterus
CPT/HCPCS: 36415; 70450; 80048; 85027; 85610; 85730; 93005; 93010; 96365; 96368; 96375; 99285; J1953; J2765; J3010; J7050